=== PATIENT | female | born 1960 | race Caucasian/White ===

== ENCOUNTER 2022-10-17 08:09 | Emergency (ER) | payer OTHER, SELFPAY ==
--- NOTE | 2022-10-17 08:14 | ED.URI ---
HPI - URI/Sore Throat General Chief Complaint: Upper Respiratory Infection Stated Complaint: Soare throat Source: patient and RN notes reviewed History of Present Illness HPI Narrative: 61 yo F presents to urgent care with complaints of sore throat since yesterday. Pt reports a scratchy throat yesterday and reports worsening sore throat throughout the night. Patient states she took Advil for her symptoms. Denies any fevers, chills, congestion, chest pain, shortness of breath or vomiting. Patient reports slight bilateral ear pain. Some parts of this dictation were generated by voice recognition software and may contain typographical and/or grammatical inaccuracies. Related Data Home Medications Medication Instructions Recorded Confirmed atorvastatin 10 mg tablet 10 mg DAILY 10/17/22 10/17/22 ergocalciferol (vitamin D2) 1,250 10/17/22 10/17/22 mcg (50,000 unit) capsule losartan 100 1 tablet DAILY 10/17/22 10/17/22 mg-hydrochlorothiazide 25 mg tablet Allergies Allergy/AdvReac Type Severity Reaction Status Date / Time No Known Allergies Allergy Verified 10/17/22 08:24 Review of Systems Review of Systems: CONSTITUTIONAL: Denies fever, chills, or sweats. EYES: Denies visual changes, redness, or discharge. ENT: sore throat CARDIOVASCULAR: Denies chest pain, palpitations, or edema. RESPIRATORY: Denies cough or dyspnea. GASTROINTESTINAL: Denies abdominal pain, nausea, vomiting, or diarrhea. GENITOURINARY: Denies dysuria or hematuria. SKIN: Denies rash or itching. MUSCULOSKELETAL: Denies back pain, joint pain, or myalgia. NEUROLOGIC: Denies headache, numbness, or weakness. PMFSH Comments At the time of my signature, I reviewed and agree with the nursing past medical, surgical, social, and family history. There is no relevant family history pertinent to the patient complaint. Exam Narrative: GENERAL: This is a well-nourished, well-developed patient, in no apparent distress. HEAD: normocephalic, atraumatic. EYES: PERRL. Sclera clear/white. Vision is grossly intact. EARS: External ears normal, auditory canals clear and without drainage, TMs normal without perforation. Hearing grossly intact. NOSE: External nose normal with no obvious nasal discharge, nares without redness, no rhinorrhea. THROAT: Mucous membranes moist, posterior pharynx clear. NECK: Neck supple, non-tender without lymphadenopathy, masses or thyromegaly. CARDIOVASCULAR: Regular rate and rhythm without murmurs, gallops, or rubs. RESPIRATORY: Clear to auscultation. Breath sounds equal bilaterally. No wheezes, rales, or rhonchi. GASTROINTESTINAL: Abdomen soft, non-tender, nondistended. Bowel sounds are active. No hepato-splenomegaly, or palpable masses. No guarding. SKIN: warm, intact with no suspicious lesions or rash, good texture and turgor. NEURO: awake, alert, and oriented to person, place and time. There were no obvious focal neurologic abnormalities. EXTREMITIES: No clubbing, cyanosis, or edema. No joint tenderness, effusion, or edema noted. BACK: Nontender without deformity or crepitance. No flank tenderness. Course Course Level of Care: Express Care Visit Vital Signs Vital signs: Vital Signs Temperature 98.3 F 10/17/22 08:22 Pulse Rate 68 10/17/22 08:22 Respiratory Rate 18 10/17/22 08:22 Blood Pressure 139/84 10/17/22 08:22 Pulse Oximetry 98 10/17/22 08:22 Oxygen Delivery Room Air 10/17/22 08:22 Temperature 98.3 F 10/17/22 08:22 Pulse Rate 68 10/17/22 08:22 Respiratory Rate 18 10/17/22 08:22 Blood Pressure 139/84 10/17/22 08:22 Pulse Oximetry 98 10/17/22 08:22 Oxygen Delivery Room Air 10/17/22 08:22 Reviewed MDM - URI/Sore Throat MDM Narrative Medical decision making narrative: Rapid strep is negative in the office; however we will send to the lab for confirmation; there is a small percentage chance that it can come back positive; if it is, we will call you in 2-3days; and your prescription
[2022-10-17 08:22] VITALS: BP 139/84; PULSE 68; RESP 18; TEMP 36.8; O2SAT 98
== END 2022-10-17 09:02 | disposition home or self-care (01) ==
PROVIDERS: Emergency Provider Nurse Practitioner Family
DX: J02.9 Acute pharyngitis, unspecified (principal)
CPT/HCPCS: 87081; 87880; 99213; G0463